=== PATIENT | female | born 1940 | race Caucasian/White ===

== ENCOUNTER 2022-10-24 15:29 | Emergency (ER) | payer BC, MEDICARE | END 2022-10-24 17:35 | disposition home or self-care (01) | LOC: JD.ED 15:29 | DX: S06.0X0A Concussion without loss of consciousness, initial encounter (principal); S00.03XA Contusion of scalp, initial encounter; S30.0XXA Contusion of lower back and pelvis, initial encounter; Z88.1 Allergy status to other antibiotic agents; Z88.8 Allergy status to other drugs, medicaments and biological substances; W18.09XA Striking against other object with subsequent fall, initial encounter | CPT/HCPCS: 70450; 70450-26; 72131; 72131-26; 99283 ==